=== PATIENT | female | born 1990 | race African-American/Black ===

== ENCOUNTER 2023-06-30 15:36 | Emergency (ER) | payer OTHER ==
[~2023-06-30] VITALS: Ht 167.6 cm; Wt 77.0 kg
[2023-06-30 15:45] VITALS: BP 144/95; PULSE 87; RESP 20; TEMP 98.8; O2SAT 99
== END 2023-06-30 17:40 | disposition home or self-care (01) ==
LOC: ER 15:36
DX: S80.862A Insect bite (nonvenomous), left lower leg, initial encounter (principal); W57.XXXA Bitten or stung by nonvenomous insect and other nonvenomous arthropods, initial encounter; Y93.89 Activity, other specified; Y92.89 Other specified places as the place of occurrence of the external cause; Y99.8 Other external cause status
CPT/HCPCS: 99282

== ENCOUNTER 2023-07-13 18:22 | Emergency (ER) | payer OTHER ==
[~2023-07-13] VITALS: Ht 167.6 cm; Wt 91.0 kg
[2023-07-13 18:30] VITALS: TEMP 97.9; O2SAT 100
[2023-07-13] MEDS ORDERED: HYDR99LO TP (19:23)
[2023-07-13 19:38] VITALS: BP 146/93; PULSE 103; RESP 16
== END 2023-07-13 19:48 | disposition home or self-care (01) ==
LOC: ER 18:22
DX: R68.89 Other general symptoms and signs (principal); I10 Essential (primary) hypertension
CPT/HCPCS: 99282